=== PATIENT | male | born 1935 | race Caucasian/White ===

== ENCOUNTER → 2018-03-08 | Day surgery (SDC) | payer OTHER ==
[~2018-03-08] MED LIST: AVAPRO300 MG PO; CEFUROXIME500 MG PO; DYAZIDE 37.5-21 EACH PO; FENOFIBRATE160 MG PO; FORTAMET1000 MG PO; GLUMETZA1000 MG PO; HYDRODIURIL12.5 MG PO; NORVASC10 MG PO; PAXIL20 MG PO; PREVACID30 M1 PO; TAMS0.4C PO; TENORMIN100 M1 PO; XANAX XR0.5 MG PO; ZOCOR20 MG PO
== END | disposition home or self-care (01) ==
LOC: ADM 03-07 10:00 → CIR.AMB 10:00
DX: C67.0 Malignant neoplasm of trigone of bladder (principal); C67.4 Malignant neoplasm of posterior wall of bladder

== ENCOUNTER 2018-03-11 16:41 | Emergency (ER) | payer OTHER ==
[~2018-03-11] VITALS: Ht 180.3 cm; Wt 85.7 kg
[~2018-03-11 16:41] MED LIST changes: -CEFUROXIME500 MG PO
[2018-03-11] MEDS ORDERED: CEFUROXIME500 MG PO (21:57)
== END 2018-03-11 22:12 | disposition home or self-care (01) ==
LOC: ER 16:41
DX: N39.0 Urinary tract infection, site not specified (principal); J11.1 Influenza due to unidentified influenza virus with other respiratory manifestations; B96.5 Pseudomonas (aeruginosa) (mallei) (pseudomallei) as the cause of diseases classified elsewhere